=== PATIENT | male | born 1970 | race Caucasian/White ===

== ENCOUNTER 2019-04-20 18:06 | Emergency (ER) | payer MEDICARE, MEDICAID ==
[~2019-04-20] VITALS: Ht 195.6 cm; Wt 145.0 kg
== END 2019-04-20 21:39 | disposition home or self-care (01) ==
LOC: ER 18:06
DX: R20.0 Anesthesia of skin (principal); F12.90 Cannabis use, unspecified, uncomplicated; M19.90 Unspecified osteoarthritis, unspecified site
CPT/HCPCS: 99281